=== PATIENT | female | born 1955 | race Caucasian/White ===

== ENCOUNTER 2021-03-06 13:16 | Inpatient (IN) | payer OTHER, SELFPAY ==
[~2021-03-06] VITALS: Ht 165.1 cm; Wt 34.5 kg
[2021-03-06 13:29] VITALS: BP_SYST 131; BP_SYST 137; BP_DIAS 72
--- NOTE | 2021-03-06 13:33 | NUR ---
TENT 2
--- NOTE | 2021-03-06 14:01 | NUR ---
PT AMBULATED TO BED 10
--- NOTE | 2021-03-06 14:03 | NUR ---
65 Y/O FEMALE C/O FEVER AND CHILLS X3 DAYS. PT REPORTS FEVER OF 100-101 BUT DENIES TAKING ANYTHING FOR PAIN. PT DENIES SOB/COUGH AND ANY OTHER SYMPTOMS. DENIES EXPOSURE TO ANYONE WITH COVID. PT IS NOT VACCINATED. PT DENIES PAIN AT THIS TIME. PT A/O X4 WITH EVEN AND UNLABORED RESPIRATIONS. PT IN GOWN ON TUNNELLER PM:MARKIE NKDA Addendum: 03/06/21 at 1841 by [email or web address] ON FIRST ASSESSMENT, PT A/O X4/ GCS 15. PT HAS HAD INCREASED CONFUSION WHILE IN THE ER. ERMD HAS BEEN NOTIFIED. PT HAS PERIODS OF CONFUSION, GCS NOW 14. A/O X1/2
--- NOTE | 2021-03-06 14:06 | NUR ---
COVID NOAM SWAB DONE.
--- NOTE | 2021-03-06 14:10 | NUR ---
DR VALERIO AT BEDSIDE EVALUATING PT
[2021-03-06] MEDS ORDERED: NACL 0.9% 1,000 ML IV ONE (14:15)
--- NOTE | 2021-03-06 14:17 | NUR ---
RAD AT BEDSIDE
--- NOTE | 2021-03-06 14:21 | NUR ---
PT AMBULATED TO RESTROOM FOR URINE SAMPLE
--- NOTE | 2021-03-06 14:54 | NUR ---
URINE SAMPLE, COVID NOVEL SAMPLE, AND BLOOD SAMPLES COLLECTED AND WALKED TO LAB
[2021-03-06 14:58] LABS: HEMATOCRIT 36.8 % (36-48); HEMOGLOBIN 12.4 g/dL (12.0-16.0); MEAN CORPUSCULAR HEMOGLOBIN 28 pg (27-31); MEAN CORPUSCULAR HGB CONC 34 g/dL (33-37); MEAN CORPUSCULAR VOLUME 84.2 fL (80-94); PLATELET COUNT (AUTO) 267 K/uL (140-450); RED BLOOD CELL COUNT(AUTO) 4.37 MIL/uL (4.20-5.40); RED CELL DISTRIBUTION WIDTH 15.7 % (11.6-13.7)
[2021-03-06 15:00] LABS: WHITE BLOOD COUNT (AUTO) 25.3 K/uL (4.8-10.8)
[2021-03-06] MEDS ORDERED: cefTRIAXone 1,000 MG in DEXT 5% MINI-BAG PLUS 50 ML IV ONE (15:05)
--- NOTE | 2021-03-06 15:08 | NUR ---
Note guillaume in EDM - 03/06/21 at 1551 by [email or web address] PT PULLED OUT IV, TOOK OFF BEADWORKER, AND TRIED WALKING OUT OF ROOM. PT CONFUSED AND STATING SHE DOESNT KNOW WHY SHE GOT OUT OF BED. PT A/O X2, UNAWARE OF TIME OR SITUATION. DR VALERIO MADE AWARE
--- NOTE | 2021-03-06 15:08 | NUR ---
PT PULLED OUT IV, TOOK OFF BAND ATTACHER, AND TRIED WALKING OUT OF ROOM. PT CONFUSED AND STATING SHE DOESNT KNOW WHY SHE GOT OUT OF BED. PT A/O X2, UNAWARE OF TIME OR SITUATION. PT ASSISTED BACK TO BED, RECONNECTED TO MONITOR AND REORIENTED. BED IN LOWEST POSITION, BRAKES LOCKED, X2 SIDERAILS UP FOR SAFETY. MD VALERIO MADE AWARE
[2021-03-06 15:12] LABS: APPEARANCE,URINE CLOUDY (CLEAR); BILIRUBIN,URINE 1+ (NEGATIVE); BLOOD, URINE 3+ (NEGATIVE); COLOR,URINE YELLOW (YELLOW); LEUKOCYTE ESTERASE ,URINE 3+ (NEGATIVE); NITRITE, URINE POSITIVE (NEGATIVE); UGLUCOSE NEGATIVE (NEGATIVE)
[2021-03-06 15:14] LABS: ALBUMIN 3.2 g/dL (3.4-5.0); ANION GAP 18.8 (8-16); CARBON DIOXIDE 20.9 mmol/L (21-32); CREATININE 1.7 mg/dL (0.6-1.3); POTASSIUM 3.7 mmol/L (3.5-5.1); TOTAL BILIRUBIN 0.7 mg/dL (0.0-1.0)
[2021-03-06 15:20] LABS: LYMPHOCYTES % (MANUAL) 3 % (20-46); MONOCYTES % (MANUAL) 2 % (5-12)
--- NOTE | 2021-03-06 15:25 | NUR ---
PATIENT TAKEN TO CT VIA MIKE
--- NOTE | 2021-03-06 15:45 | NUR ---
PT BACK FROM CT AND CONNECTED TO MONITOR
[2021-03-06] MEDS ORDERED: cefTRIAXone 1,000 MG VIAL ONE (16:04)
[2021-03-06 16:43] LABS: RBC,URINE >100 /HPF (0-5); WBC,URINE 60-80 /HPF (0-5)
--- NOTE | 2021-03-06 17:21 | NUR ---
PT SLEEPING IN BED WITH EVEN AND UNLABORED RESPIRATIONS. BED IN LOWEST POSITION, BRAKES LOCKED, X2 SIDERAILS UP FOR SAFETY. WILL CONTINUE TO MONITOR
--- NOTE | 2021-03-06 18:10 | NUR ---
PT TOOK OFF LEADS AND TRYING TO GET OUT OF BED. PT REORIENTED AND HELPED BACK IN BED AND ATTACHED TO MONITOR. DR VALERIO MADE AWARE.
[2021-03-06] MEDS ORDERED: LORazepam 2 MG/ML VIAL IVP ONE (18:15)
[2021-03-06] MEDS ORDERED: ACETAMINOPHEN EXTRA STRENGTH 500 MG TAB PO ONE (18:15)
[2021-03-06] MEDS ORDERED: ZOLPIDEM 5 MG TAB PO PRN (18:25)
[2021-03-06] MEDS ORDERED: MAGNESIUM OXIDE 400 MG TAB PO PRN (18:25)
[2021-03-06] MEDS ORDERED: ONDANSETRON 4 MG/2 ML VIAL IVP PRN (18:25)
[2021-03-06] MEDS ORDERED: MAG SULF 2000 MG/WATER PREMIX 50 ML IV PRN (18:25)
[2021-03-06] MEDS ORDERED: KCL 20 MEQ/WATER INJ PREMIX 200 ML IV PRN (18:25)
[2021-03-06] MEDS ORDERED: HYDROcodone/APAP 5/325 MG 1 TAB TAB PO PRN (18:25)
[2021-03-06] MEDS ORDERED: MORPHINE SULFATE 4 MG/ML SYR IVP PRN (18:25)
[2021-03-06] MEDS ORDERED: ACETAMINOPHEN 325 MG TAB PO PRN (18:25)
[2021-03-06] MEDS ORDERED: POTASSIUM CHLORIDE 10 MEQ TABER PO PRN (18:25)
[2021-03-06] MEDS: NACL 0.9% 1,000 ML IV SCH (18:56)
--- NOTE | 2021-03-06 19:23 | NUR ---
REPORT GIVEN TO KENNETH RN, TRANSFER OF CARE AT THIS TIME
--- NOTE | 2021-03-06 19:26 | NUR ---
Patient appears to be restless- low fowlers with eyes open. patient denies pain. patient AAOx2 currently. Patient RR increased to 40s and HR in 110s. Safety measures in place, attached to fluids, placed on the awake overnight monitor, and will continue to monitor patient.
[2021-03-06] MEDS ORDERED: LANTUS SUBQ (19:39)
--- NOTE | 2021-03-06 20:04 | NUR ---
Patient will be admitted to care of Zeke Amanda MD and Kel Tay MD. Admited to Telemetry. Will go to room 118a. Belongings list completed. Report to Анна BLACK.
--- NOTE | 2021-03-06 20:30 | NUR ---
PATIENT TRANSFERRED TO FLOOR. PATIENT IS AAOX4 AT THIS TIME. PER TRAUMA DIRECTOR PT HAS MOMENTS OF CONFUSION, RESPIRATIONS ARE EQUAL AND UNLABORED ON ROOM AIR SAT WELL 95%. DENIES COUGH OR SOB. C/C FEVER X3 DAYS DX SEPSIS,UTI,IMAN. COVID RAPID NEG, PCR PENDING ISOLATION SIGN AT DOOR. ORIENTED PATIENT TO ROOM, STAFF, CALL LIGHT, VISITING HOURS. MRSA SWAB OBTAINED AND SENT TO LAB. SKIN IS INTACT. PT FROM HOME ABLE TO AMBULATE WITH ASSIST. POC REVIEWED WITH PATIENT. PT VERBALIZED UNDERSTANDING.
--- NOTE | 2021-03-06 20:44 | NUR ---
VITAL SIGNS ARE WITHIN NORMAL LIMITS. SHC HEPARIN GIVEN PER ORDERS. ALL SAFETY MEASURES ARE IN PLACE. WILL CONTINUE TO MONITOR.
[2021-03-06 20:46] VITALS: BP 100/48
--- NOTE | 2021-03-06 21:56 | NUR ---
ROUNDS MADE. PT APPEARS TO BE SLEEPING COMFORTABLY IN BED. NO S/SX OF DISTRESS. CALL LIGHT IS WITHIN REACH
[2021-03-07] VITALS: BP 110/54
--- NOTE | 2021-03-07 00:20 | NUR ---
VITAL SIGNS ARE WITHIN NORMAL LIMITS. ASSISTED PATIENT TO BATHROOM TOLERATED WELL. PT RESTING IN BED. NO S/SX OF DISTRESS. WILL CONTINUE TO MONITOR.
--- NOTE | 2021-03-07 02:02 | NUR ---
ASSISTED PATIENT TO THE RESTROOM. PT TOLERATED WELL. ALL NEEDS MET. CALL LIGHT IS WITHIN REACH.
[2021-03-07 04:00] VITALS: BP 97/61
--- NOTE | 2021-03-07 04:42 | NUR ---
NOTIFIED BY QUALITY CONTROL TECH HEART RATE 141 ASSESSED PATIENT. PT OBSERVED WALKING BACK FROM BATHROOM. PATIENT NOW RESTING IN BED HEART RATE IN 120S PT DENIES S/SX OF DISTRESS. VITAL SIGNS ARE STABLE. WILL CONTINUE TO MONITOR.
--- NOTE | 2021-03-07 05:55 | NUR ---
ADMIN PRN TYLENOL FOR TEMP 100.[address] FAN TURN ON. WILL CONTINUE TO MONITOR
[2021-03-07] MEDS: NACL 0.9% 1,000 ML IV SCH ×2 (06:56→10:00)
[2021-03-07 06:59] LABS: ALBUMIN 2.7 g/dL (3.4-5.0); ANION GAP 26.2 (8-16); CARBON DIOXIDE 18.6 mmol/L (21-32); CREATININE 1.5 mg/dL (0.6-1.3); POTASSIUM 3.8 mmol/L (3.5-5.1); TOTAL BILIRUBIN 0.7 mg/dL (0.0-1.0)
[2021-03-07 07:10] LABS: BASOPHILS % (AUTO) 0.1 % (0.0-2.0); EOSINOPHILS % (AUTO) 0.1 % (0.0-4.0); HEMATOCRIT 36.9 % (36-48); HEMOGLOBIN 12.2 g/dL (12.0-16.0); LYMPHOCYTES # (AUTO) 0.9 K/uL (2.5-16.5); LYMPHOCYTES % (AUTO) 3.8 % (20.5-51.1); MEAN CORPUSCULAR HEMOGLOBIN 28 pg (27-31); MEAN CORPUSCULAR HGB CONC 33 g/dL (33-37); MEAN CORPUSCULAR VOLUME 85.5 fL (80-94); MONOCYTES # (AUTO) 4.7 K/uL (0.8-1.0); MONOCYTES % (AUTO) 18.9 % (1.7-9.3); NEUTROPHILS % (AUTO) 77.1 % (42.2-75.2); PLATELET COUNT (AUTO) 218 K/uL (140-450); RED BLOOD CELL COUNT(AUTO) 4.31 MIL/uL (4.20-5.40); RED CELL DISTRIBUTION WIDTH 15.9 % (11.6-13.7); WHITE BLOOD COUNT (AUTO) 24.6 K/uL (4.8-10.8)
--- NOTE | 2021-03-07 07:15 | NUR ---
GAVE BEDSIDE REPORT TO DAY RN. PT ENDORSED IN STABLE CONDITION.
--- NOTE | 2021-03-07 07:16 | NUR ---
RECEIVED PATIENT FROM ROAD FREIGHT CONDUCTOR NURSE FOR CONTINUITY OF CARE. PATIENT IS A/A/O X4 WITH EPISODE OF FORGETFUL. RESPIRATORY EVEN AND UNLABORED, ON ROOM AIR, NO SIGN OF DISTRESS NOTED. SKIN WARM, DRY, NON DIAPHORETIC. IV ON LEFT AC 20G, INTACT AND PATENT. PATIENT DENIES ANY PAIN OR DISCOMFORT. REPORTS BURNING WHEN URINATE. ABLE TO MAKE NEED KNOWN. PLAN OF CARE DISCUSSED, PATIENT VERBALIZED UNDERSTANDING. PRECAUTION IN PLACE. CALL LIGHT WITHIN REACH. WILL CONTINUE TO MONITOR.
[2021-03-07 08:00] VITALS: BP 120/64
--- NOTE | 2021-03-07 08:57 | NUR ---
RECEIVED CALL FROM RADIOLOGY REGARDING THE ORDER FOR LEFT NEPHROSTOMY TUBE PLACEMENT, WILL CALL DR ZAIDI TO VERIFY.
[2021-03-07 08:58] LABS: PROTHROMBIN TIME 12.2 secs (10.8-13.4)
--- NOTE | 2021-03-07 09:30 | NUR ---
PAGED DR ZAIDI REGARDING THE ORDER FOR LEFT NEPHROSTOMY TUBE PLACE. WAITING FOR CALL BACK.
--- NOTE | 2021-03-07 09:34 | NUR ---
RECEIVED CALL BACK FROM DR ZAIDI OFFICE. TORB ORDER FOR LEFT NEPHROSTOMY TUBE PLACE AND HOLD HEPARIN FOR UP COMING PROCEDURE. WILL FOLLOW ORDER.
[2021-03-07] MEDS ORDERED: DEXTROSE 50% 50 ML SYR IVP PRN (09:35)
--- NOTE | 2021-03-07 11:00 | NUR ---
ROUND CHECK. PATIENT IS RESTING IN BED, NO SIGN OF DISTRESS NOTED. PRECAUTION IN PLACE. CALL LIGHT WITHIN REACH. WILL CONTINUE TO MONITOR.
--- NOTE | 2021-03-07 11:03 | NUR ---
PATIENT HAS BEEN SCREENED AND CATEGORIZED HIGH NUTRITION RISK. PATIENT WILL BE SEEN WITHIN 1-2 DAYS OF ADMISSION. 03/08/21 REVIEWED BY LAKHWINDER FULLER RD
[2021-03-07] MEDS: BLOOD GLUCOSE MONITORING 1 DEV DEV FS SCH ×3 (11:42→21:00)
[2021-03-07] MEDS: INSULIN LISPRO SLIDING SCALE 100 UNITS/ML VIAL SUBQ PRN ×2 (11:42→22:29)
[2021-03-07 12:00] VITALS: BP 109/74
--- NOTE | 2021-03-07 12:27 | NUR ---
DC PLANNIN YRS OLD FEMALE PATIENT WAS ADMITTED FROM HOME WITH A DX OF SEPSIS, UTI AND IMAN. PATIENT HAS A HX OF DIABETES CXR SHOWED CHRONIC CHANGES CT ABD SHOWED OBSTRUCTING CALCULUS IN THE LEFT KIDNEY HYDRONEPHROSIS. RAPID COVID TEST NEGATIVE . ADMINISTERED IVF, IV ABX ROCEPHIN. CONSULTED WITH UROLOGISTS AND ENROLLMENT MANAGEMENT MANAGER. DC PLAN TO GO HOME WHEN [place]. CM TO FOLLOW [facility] BEL[facility]ÁN UPDATED PATIENT'S CLINICAL AND POSSIBLE NEPHROSTOMY TUBE PLACEMENT, HE PROVIDED THE AUTH NUMBER FOR HOSPITAL STAY. AUTH# [id number]
--- NOTE | 2021-03-07 13:55 | NUR ---
DR PALMA AT BEDSIDE TO EXPLAIN THE PROCEDURE. PATIENT VERBALIZED UNDERSTANDING. PATIENT SIGNED, WITNESS BY RN.
[2021-03-07] MEDS ORDERED: LIDOCAINE 1% 500 MG/50 ML VIAL ONE (14:04)
[2021-03-07] MEDS ORDERED: fentaNYL citrate 0.05 MG/ML VIAL ONE (14:27)
[2021-03-07] MEDS ORDERED: MIDAZOLAM 5 MG/5 ML VIAL ONE (14:27)
--- NOTE | 2021-03-07 14:35 | NUR ---
PATIENT TRANSFER TO OR FOR NEPHROSTOMY TUBE PLACEMENT VIA GURNEY. PATIENT IS STABLE.
--- NOTE | 2021-03-07 15:36 | NUR ---
PATIENT WAS RE-SCREENED LOW NUTRITION RISK DUE TO BMI OF 12.6 KG/M2 INACCURATE PER RN. LAKHWINDER FULLER RD
--- NOTE | 2021-03-07 15:41 | NUR ---
PATIENT'S , CATHERINE, CALLED TO UPDATE PATIENT'S CONDITION. ALL QUESTIONS ANSWERED, WILL CONTINUE TO UPDATE.
--- NOTE | 2021-03-07 15:51 | NUR ---
HOLD SCHEDULE ROCEPHIN DUE TO PATIENT RECEIVED ONCE TIME DOSE BEFORE PROCEDURE.
--- NOTE | 2021-03-07 16:18 | NUR ---
PATIENT CAME BACK FROM OR, PATIENT IS A/A/O X4. DENIES ANY PAIN OR DISCOMFORT AT THIS TIME. NEPHROSTOMY BAG NOTED ON LEFT FLANK, RED DRAINAGE. VITAL SIGNS WNL, BP 104/63, HR 114, O2 SAT 96%, TEMP 99.0, RR 18. PRECAUTION IN PLACE. CALL LIGHT WITHIN REACH. WILL CONTINUE TO MONITOR.
[2021-03-07 16:20] VITALS: BP 104/63
--- NOTE | 2021-03-07 17:07 | NUR ---
BLOOD SUGAR CHECK 139, NO INSULIN NEED TO COVER. PATIENT IS RESTING IN BED, NO SIGN OF DISTRESS NOTED. PRECAUTION IN PLACE. CALL LIGHT WITHIN REACH. WILL CONTINUE TO MONITOR.
--- NOTE | 2021-03-07 18:45 | NUR ---
PATIENT IS EATING HER DINNER, NO SIGN OF DISTRESS NOTED. PATIENT ACCIDENTLY TAKES OFF HER IV, NO SIGN OF ACTIVE BLEEDING NOTED. WILL ENDORSED TO SENIOR INFORMATION SYSTEMS ARCHITECT NURSE. PRECAUTION IN PLACE. CALL LIGHT WITHIN REACH. WILL CONTINUE TO MONITOR.
--- NOTE | 2021-03-07 19:36 | NUR ---
ENDORSED PATIENT TO JEWELRY MODEL MAKER NURSE FOR CONTINUITY OF CARE. PATIENT IS STABLE.
[2021-03-07 20:00] VITALS: BP 111/61
--- NOTE | 2021-03-07 23:39 | NUR ---
PATIENT AWAKE ALERT PATIENT HAS NO IV SITE PUT 22 GA IN AT RIGHT WRIST SITE WRAPPED WITH GLAUZE DRRESSING. PATIENT C/O OF SOME DISCOMFORT AT RIGHT SIDE WHERE NEPHROSTOMY IS GIVEN MORPHINE 4 MG IVP. THE DRAINAGE IN BAG IS ORANGE RED DRAINAGE NO OTHER C/O. LUNGS DIMINISH ON ROOM AIR. BLOOD SUGAR 2100 287 GIVEN 6 UNITS OF HUMALOG S.S RIGHT UPPER ARM. IV RESTARTED NS AT 80 HOUR. PATIENT SINUS TACH ON MONITOR 106 HEART RATE. TEMP 98.3.2000.
[2021-03-08] VITALS: BP 110/60
[2021-03-08 04:00] VITALS: BP 103/60
--- NOTE | 2021-03-08 05:42 | NUR ---
patients blood sugar this a.m 212 to be covered on day.
[2021-03-08 07:18] LABS: BASOPHILS # (AUTO) 0.1 K/uL (0.00-0.22); BASOPHILS % (AUTO) 0.4 % (0.0-2.0); EOSINOPHILS # (AUTO) 0.1 K/uL (0-0.4); EOSINOPHILS % (AUTO) 0.5 % (0.0-4.0); HEMOGLOBIN 10.9 g/dL (12.0-16.0); LYMPHOCYTES # (AUTO) 1.4 K/uL (2.5-16.5); LYMPHOCYTES % (AUTO) 7.2 % (20.5-51.1); MEAN CORPUSCULAR HEMOGLOBIN 28 pg (27-31); MEAN CORPUSCULAR HGB CONC 34 g/dL (33-37); MEAN CORPUSCULAR VOLUME 83.6 fL (80-94); MONOCYTES # (AUTO) 2.3 K/uL (0.8-1.0); MONOCYTES % (AUTO) 12.5 % (1.7-9.3); NEUTROPHILS # (AUTO) 14.8 K/uL (1.8-7.7); NEUTROPHILS % (AUTO) 79.4 % (42.2-75.2); PLATELET COUNT (AUTO) 280 K/uL (140-450); RED BLOOD CELL COUNT(AUTO) 3.83 MIL/uL (4.20-5.40); RED CELL DISTRIBUTION WIDTH 15.9 % (11.6-13.7); WHITE BLOOD COUNT (AUTO) 18.7 K/uL (4.8-10.8)
[2021-03-08 07:21] LABS: ALBUMIN 2.4 g/dL (3.4-5.0); ANION GAP 16.8 (8-16); CARBON DIOXIDE 18.9 mmol/L (21-32); CREATININE 1.3 mg/dL (0.6-1.3); POTASSIUM 3.7 mmol/L (3.5-5.1); TOTAL BILIRUBIN 0.2 mg/dL (0.0-1.0)
[2021-03-08] MEDS: NACL 0.9% 1,000 ML IV SCH ×2 (07:55→20:00)
[2021-03-08 08:00] VITALS: BP 125/77
--- NOTE | 2021-03-08 08:12 | NUR ---
RECEIVED REPORT FROM NIGHT NURSE, PT IS ALERT ORIENTED X 4 VERBALLY RESPONSIVE, DENIES PAIN AND DISCOMFORT. HAS IV ACCESS ON RIGHT WRIST 22 GAUGE. NEPHROSTOMY TUBE ON THE LEFT SIDE. PT NORMAL SALINE 80 ML/HR, SINUS TACHY. POC DISCUSSED WILL CONTINUE TO FOLLOW.
[2021-03-08] MEDS: INSULIN LANTUS 100 UNITS/ML 10 ML VIAL SUBQ SCH (08:46)
[2021-03-08] MEDS: BLOOD GLUCOSE MONITORING 1 DEV DEV FS SCH ×3 (11:53→21:00)
[2021-03-08] MEDS: INSULIN LISPRO SLIDING SCALE 100 UNITS/ML VIAL SUBQ PRN ×3 (11:59→22:26)
[2021-03-08 12:00] VITALS: BP 130/92
[2021-03-08 16:15] VITALS: BP 121/85
--- NOTE | 2021-03-08 16:15 | NUR ---
BLOOD GLUCOSE 179 2 UNITS OF INSULIN GIVEN.
--- NOTE | 2021-03-08 19:29 | NUR ---
ENDORSED NIGHT NURSE FOR CONTINUITY OF CARE PT IS STABLE.
[2021-03-08 20:00] VITALS: BP 117/51
[2021-03-09] VITALS: BP 158/78
--- NOTE | 2021-03-09 01:22 | NUR ---
PATIENT AWAKE ALERT NO C/O IV SITE OK 22 GA RIGHT WRIST. ON ROOM AIR SAT 96%. NEPHROSTOMY BAG DRAINING GILMA COLOR DRAIN 350 OUR 2300 PATIENT ALSO VOIDING. PATIENT ON MONITOR SINUS CHEST CLEAR. BLOOD SUGAR 228 COVERED WITH 4 UNITS OF HUMALOG S.Q. THE SITE OF NEPHROSTOMY DRY INTACT. PATIENT HAS NS INFUSING AT 80 HOUR.
[2021-03-09 04:00] VITALS: BP 152/76
[2021-03-09 07:33] LABS: BASOPHILS % (AUTO) 0.4 % (0.0-2.0); EOSINOPHILS # (AUTO) 0.3 K/uL (0-0.4); EOSINOPHILS % (AUTO) 2.1 % (0.0-4.0); HEMATOCRIT 30.5 % (36-48); HEMOGLOBIN 10.1 g/dL (12.0-16.0); LYMPHOCYTES # (AUTO) 1.6 K/uL (2.5-16.5); LYMPHOCYTES % (AUTO) 13.5 % (20.5-51.1); MEAN CORPUSCULAR HEMOGLOBIN 28 pg (27-31); MEAN CORPUSCULAR HGB CONC 33 g/dL (33-37); MONOCYTES # (AUTO) 1.8 K/uL (0.8-1.0); MONOCYTES % (AUTO) 14.9 % (1.7-9.3); NEUTROPHILS # (AUTO) 8.4 K/uL (1.8-7.7); NEUTROPHILS % (AUTO) 69.1 % (42.2-75.2); PLATELET COUNT (AUTO) 293 K/uL (140-450); RED BLOOD CELL COUNT(AUTO) 3.59 MIL/uL (4.20-5.40); RED CELL DISTRIBUTION WIDTH 16.1 % (11.6-13.7); WHITE BLOOD COUNT (AUTO) 12.1 K/uL (4.8-10.8)
--- NOTE | 2021-03-09 07:33 | NUR ---
RECEIVED REPORT FROM NIGHT NURSE PT IS ALERT ORIENTED X 4 VERBALLY RESPONSIVE. HAS NEPHROSTOMY TUBE ON LEFT SIDE, PT IS AMBULATORY. DIABETIC PT LAST BLOOD GLUCOSE WAS 147 NO INSULIN COVERAGE NEEDED. IV ACCESS ON RIGHT WRIST 22 GAUGE, NS 80 ML/HR. SKIN IS INTACT. POC DISCUSSED WILL CONTINUE TO FOLLOW.
[2021-03-09 07:58] LABS: ALBUMIN 2.1 g/dL (3.4-5.0); ANION GAP 14.6 (8-16); CARBON DIOXIDE 19.6 mmol/L (21-32); CREATININE 1.2 mg/dL (0.6-1.3); POTASSIUM 3.2 mmol/L (3.5-5.1); TOTAL BILIRUBIN 0.2 mg/dL (0.0-1.0)
[2021-03-09 08:00] VITALS: BP 115/73
[2021-03-09] MEDS: INSULIN LANTUS 100 UNITS/ML 10 ML VIAL SUBQ SCH (08:24)
[2021-03-09] MEDS: BLOOD GLUCOSE MONITORING 1 DEV DEV FS SCH ×2 (08:25→12:30)
[2021-03-09] MEDS: NACL 0.9% 1,000 ML IV SCH (08:55)
[2021-03-09] MEDS ORDERED: CEPH-588 PO (09:15)
[2021-03-09] MEDS: INSULIN LISPRO SLIDING SCALE 100 UNITS/ML VIAL SUBQ PRN ×2 (09:50→12:33)
[2021-03-09 12:00] VITALS: BP 121/86
--- NOTE | 2021-03-09 12:17 | NUR ---
Faxed order and MD clinical notes. face sheet to Nuclear Reactor Technician at [facility] to arrange HH and nephrostomy care to [phone]. Ref # [id number]. Addendum: 03/10/21 at 0939 by Idania Cervantes RN DC PLANNING: [facility]N NOTIFIED HIM THAT PATIENT WAS DISCHARGED 03/09 AND NEEDS HOME HEALTH FOR NEPHROSTOMY TUBE CARE. FAXED ALL THE ORDER, PER ROBBIE WILL ASSIGN HOME HEALTH AND CONTACT PATIENT. JEREL TO FOLLOW
[2021-03-09 15:08] VITALS: BP_SYST 121
--- NOTE | 2021-03-09 16:30 | NUR ---
DISCHARGED PT HOME WITH HER IN STABLE CONDITION. VITALS WERE STABLE AT THE TIME OF DISCHARGE. ALL THE DISCHARGE PAPERWORK GIVEN TO THE PT. EMPTY THE NEPHROSTOMY BAG, DC THE IV ACCESS. ALL BELONGING GIVEN TO PT. TOOK PT TO THE PARKING LOT AND ASSIST TO SIT IN CAR. AND PT DO NOT HAVE ANY QUESTION AT THE TIME OF DISCHARGE.
== END 2021-03-09 16:35 | disposition home health service (06) | DRG 871 ==
LOC: MED 13:16 → MTU 18:30
PROVIDERS: ADMIT Internal Medicine; ATTEND Internal Medicine
PROC: 0T9430Z Drainage of Left Kidney Pelvis with Drainage Device, Percutaneous Approach (ICD-10-PCS; principal; 2021-03-08)
DX: A41.9 Sepsis, unspecified organism (principal); N17.0 Acute kidney failure with tubular necrosis; N13.6 Pyonephrosis; E87.1 Hypo-osmolality and hyponatremia; Z20.822 Contact with and (suspected) exposure to COVID-19; B96.20 Unspecified Escherichia coli [E. coli] as the cause of diseases classified elsewhere; E11.9 Type 2 diabetes mellitus without complications; N28.1 Cyst of kidney, acquired; Z79.4 Long term (current) use of insulin
CPT/HCPCS: 36415; 50432; 70450; 71045; 76770; 80053; 81001; 82948; 83605; 83880; 84484; 85025; 85610; 85730; 87040; 87081; 87086; 93005; 96361; 96365; 96375; 99285; C1729; J0696; J1644; J1815; J2001; J2060; J2250; J2270; J3010; J7060; Q0092; U0003

== ENCOUNTER 2021-03-11 16:44 | Emergency (ER) | payer OTHER, SELFPAY ==
[~2021-03-11] VITALS: Ht 162.6 cm; Wt 68.0 kg
[~2021-03-11 16:44] MED LIST: CEPH-588 PO; LANTUS SUBQ
[2021-03-11 16:58] VITALS: BP 141/71
--- NOTE | 2021-03-11 21:25 | NUR ---
PT SEEN AND EVALUATED BY DR. DANIEL. NO NURSING CARE PROVIDED.
--- NOTE | 2021-03-11 21:27 | NUR ---
Patient discharged with v/s stable. Written and verbal after care instructions given and explained. Patient verbalized understanding. Ambulatory with steady gait. All questions addressed prior to discharge. Advised to follow up with PMD.
== END 2021-03-11 21:27 | disposition home or self-care (01) ==
LOC: MED 16:44
DX: T83.032A Leakage of nephrostomy catheter, initial encounter (principal); T83.098A Other mechanical complication of other urinary catheter, initial encounter; E11.9 Type 2 diabetes mellitus without complications; Z79.2 Long term (current) use of antibiotics; Z79.4 Long term (current) use of insulin; Y84.6 Urinary catheterization as the cause of abnormal reaction of the patient, or of later complication, without mention of misadventure at the time of the procedure
CPT/HCPCS: 99281

== ENCOUNTER 2022-08-02 09:46 | Inpatient (IN) | payer OTHER ==
[~2022-08-02] VITALS: Ht 162.6 cm; Wt 76.7 kg
--- NOTE | 2022-08-02 09:50 | NUR ---
KIMBERLY ALS TO ER BED 10
[2022-08-02 10:02] VITALS: BP 93/63
[2022-08-02] MEDS ORDERED: cefTRIAXone 1,000 MG in DEXT 5% MINI-BAG PLUS 50 ML IV ONE (10:10)
[2022-08-02] MEDS ORDERED: NACL 0.9% 2,000 ML IV SCH (10:10)
--- NOTE | 2022-08-02 10:10 | NUR ---
UPON ARRIVAL PATIENT HAD TWO LARGE BOWEL MOVEMENTS, PATIENT CLEANED UP, PLACED IN CLEAN GOWN, DIAPER AND CLEAN UNDER PADS PLACED, PATIENT ON BEDSIDE FURNITURE FABRICATOR.
[2022-08-02] MEDS ORDERED: cefTRIAXone 1,000 MG VIAL ONE (10:22)
[2022-08-02] MEDS ORDERED: ACETAMINOPHEN EXTRA STRENGTH 500 MG TAB PO ONE (10:25)
--- NOTE | 2022-08-02 10:32 | NUR ---
NOAM AND FLU SWABS COLLECTED, STOOL SAMPLE COLLECTED AND WALKED TO LAB
--- NOTE | 2022-08-02 10:41 | NUR ---
SWABS, URINE, STOOL AND BLOOD HANDED TO LAB
--- NOTE | 2022-08-02 10:44 | NUR ---
FURNITURE RENTAL CONSULTANT AT BEDSIDE
[2022-08-02 10:57] LABS: APPEARANCE,URINE CLEAR (CLEAR); BILIRUBIN,URINE NEGATIVE (NEGATIVE); BLOOD, URINE 3+ (NEGATIVE); COLOR,URINE YELLOW (YELLOW); LEUKOCYTE ESTERASE ,URINE TRACE (NEGATIVE); NITRITE, URINE NEGATIVE (NEGATIVE); UGLUCOSE NEGATIVE (NEGATIVE)
--- NOTE | 2022-08-02 11:00 | NUR ---
66/F BIBA FROM HOME. PER EMS PATIENTS CALLED 911 STATING PATIENT WAS ALTERED AND NOT RESPONSIVE TO QUESTIONS. STATED TO EMS PATIENTS TEMP WAS 105, EMS STATING THEY RETOOK TEMP AND GOT 101, TEMP ON ARRIVAL 102 AXILLARY. PATIENT DENIES MEDICAL COMPLAINTS OR PAIN ON ARRIVAL, STATES "I FEEL FINE" BEGAN ASKING "DID I PASS OUT", PATIENT AOX3, APPEARS DIAPHORETIC, HR IN THE 130'S ON ARRIVAL. PATIENT PLACED IN GOWN AND ON BEDSIDE CAM SPECIALIST. DENIES SOB, CP OR RECENT SICK CONTACTS. 02 READING IN THE LOW 90S ON ARRIVAL, PLACED ON 2L MN, DR. VALERIO AWARE OF PATIENT STATUS ON ARRIVAL.
[2022-08-02 11:01] LABS: HEMATOCRIT 35.1 % (36-48); HEMOGLOBIN 11.5 g/dL (12.0-16.0); MEAN CORPUSCULAR HEMOGLOBIN 27 pg (27-31); MEAN CORPUSCULAR HGB CONC 33 g/dL (33-37); MEAN CORPUSCULAR VOLUME 82.1 fL (80-94); PLATELET COUNT (AUTO) 272 K/uL (140-450); RED BLOOD CELL COUNT(AUTO) 4.27 MIL/uL (4.20-5.40); WHITE BLOOD COUNT (AUTO) 19.6 K/uL (4.8-10.8)
[2022-08-02 11:11] LABS: RBC,URINE 50-80 /HPF (0-5); WBC,URINE 80-100 /HPF (0-5)
[2022-08-02 11:14] LABS: ALBUMIN 2.9 g/dL (3.4-5.0); ANION GAP 19.1 (8-16); CARBON DIOXIDE 18.4 mmol/L (21-32); CREATININE 1.8 mg/dL (0.6-1.3); POTASSIUM 3.5 mmol/L (3.5-5.1); TOTAL BILIRUBIN 0.8 mg/dL (0.0-1.0)
[2022-08-02 11:29] LABS: BASOPHILS % (MANUAL) 0 % (0-2); EOSINOPHILS % (MANUAL) 3 % (0-4); LYMPHOCYTES % (MANUAL) 7 % (20-46); MONOCYTES % (MANUAL) 7 % (5-12)
--- NOTE | 2022-08-02 12:12 | NUR ---
PATIENT BP 85/55, DR. VALERIO INFORMED, VERBAL ORDER FOR NS BOLUS TO BE GIVEN
[2022-08-02] MEDS ORDERED: NACL 0.9% 1,000 ML IV ONE (12:15)
[2022-08-02] MEDS ORDERED: NACL 0.9% 1,000 ML IV STA (12:44)
[2022-08-02] MEDS ORDERED: HYDROcodone/APAP 5/325 MG 1 TAB TAB PO PRN (12:45)
[2022-08-02] MEDS ORDERED: LORazepam 2 MG/ML VIAL IVP PRN ×2 (12:45→14:35)
[2022-08-02] MEDS ORDERED: NACL 0.9% 1,000 ML IV SCH (12:45)
[2022-08-02] MEDS ORDERED: ONDANSETRON 4 MG/2 ML VIAL IVP PRN ×2 (12:45→21:45)
[2022-08-02] MEDS ORDERED: DEXTROSE 50% 50 ML SYR IVP PRN (12:55)
[2022-08-02] MEDS: ALBUMIN HUMAN 25% 100 ML IV SCH ×2 (13:16→23:06)
--- NOTE | 2022-08-02 13:30 | NUR ---
PATIENT PULLED RIGHT FOREARM IV OUT, CATHETER INTACT, SITE BENIGN. NEW IV ESTABLISHED RIGHT HAND 20G
--- NOTE | 2022-08-02 14:25 | NUR ---
BP 70/51, DR. POPE PAGED AND NOTIFIED
--- NOTE | 2022-08-02 14:30 | NUR ---
PATIENT APPEARS PALE, DIAPHORETIC, AFEBRILE AT THIS TIME. NOTIFIED DR. POPE OF PATIENTS CURRENT STATUS, STATED DR. KEENE WILL BE CONSULTED FOR FURTHER ORDERS.
--- NOTE | 2022-08-02 15:05 | NUR ---
NOTIFIED PATIENTS OF CURRENT PATIENT STATUS. INFORMED OF CENTRAL LINE PLACEMENT, AGREED AND GAVE VERBAL CONSENT, SECOND RN SRINI WITNESSED.
[2022-08-02] MEDS ORDERED: CEFEPIME 2,000 MG in DEXTROSE 5% 100 ML IV STA (15:18)
[2022-08-02] MEDS ORDERED: VANCOMYCIN 1,000 MG in DEXTROSE 5% 250 ML IV ONE (15:20)
[2022-08-02] MEDS ORDERED: LORazepam 2 MG/ML VIAL IVP STA (15:53)
[2022-08-02] MEDS ORDERED: NOREPINEPHRINE 4 MG/4 ML VIAL IV ONE (16:07)
[2022-08-02] MEDS: NOREPINEPHRINE 4 MG in DEXTROSE 5% 250 ML IV PRN (16:20)
--- NOTE | 2022-08-02 16:21 | NUR ---
DR. MOREJON BEDSIDE FOR CENTRAL LINE PLACEMENT
[2022-08-02] MEDS ORDERED: CEFEPIME 2,000 MG VIAL IV ONE (17:30)
--- NOTE | 2022-08-02 17:30 | NUR ---
CENTRAL LINE PLACED BY ERMD DR. MOREJON IN RIGHT IJ. X RAY TAKEN S/P PROCEDURE AND PLACEMENT CONFIRMED BY DR. MOREJON, PER DR. MOREJON CENTRAL LINE NOW OKAY TO BE USED.
[2022-08-02] MEDS: BLOOD GLUCOSE MONITORING 1 DEV DEV FS SCH ×2 (17:48→21:00)
--- NOTE | 2022-08-02 17:50 | NUR ---
PATIENT WITH 100 CC OF YELLOW CLOUDY URINE SINCE ARRIVAL VIA PUREWICK IN PLACE. DR. MOREJON MADE AWARE OF LOW URINE OUTPUT AND WAS GIVEN VERBAL ORDER FOR SOTO INSERTION.
[2022-08-02] MEDS: INSULIN LISPRO SLIDING SCALE 100 UNITS/ML VIAL SUBQ PRN ×2 (17:53→23:01)
--- NOTE | 2022-08-02 18:00 | NUR ---
# 16 FR Guzman catheter INSERTED utilizing sterile technique. Immediate return of 250 ml CLOUDY YELLOW urine noted. Bedside drainage bag placed below level of bladder. Pt tolerated procedure WELL .
--- NOTE | 2022-08-02 18:10 | NUR ---
ACCOMPANIED RELOCATION SERVICES SPECIALIST TAISHA TO CT SCAN
[2022-08-02] MEDS ORDERED: VANCOMYCIN 1,000 MG VIAL ONE (18:31)
--- NOTE | 2022-08-02 19:10 | NUR ---
PATIENTS BP 122/76, LEVO DRIP TITRATED DOWN TO 2 MCG/MIN
--- NOTE | 2022-08-02 19:20 | NUR ---
Pt report given to JULIO CÉSAR BLACK. Transfer of care at this time.
--- NOTE | 2022-08-02 19:45 | NUR ---
DR JONES ANESTHESIOLOGY SPEAKING TO DR FRANCE CARDIO
--- NOTE | 2022-08-02 19:50 | NUR ---
Dr. Watson, on phone with Dr. Santamaria to discuss patient surgery. Per Dr. Santamaria, if Dr. Watson and Dr. Velasco find emergency surgery is needed for that patient then he would be agreeable to surgery.
--- NOTE | 2022-08-02 19:59 | NUR ---
Pt to surgery, report given to Heidy BLACK
[2022-08-02] MEDS ORDERED: PROPOFOL 200 MG/20 ML VIAL IV ONE ×3 (21:24)
--- NOTE | 2022-08-02 21:40 | NUR ---
RECEIVED THIS PT FROM SURGERY S/P A CYSTOSCOPY WITH RIGHT URETERAL STENT REPLACEMENT. PT IS RECEIVED ON A RKIMBOLTON ACCOMPANIED BY A RN, MODEL MAKER APPRENTICE AND AN ANESTHESIOLOGIST. PT IS AWAKE AND MOVES HERSELF FREELY FROM GURNEY TO THE BED. SHE DENIES PAIN ,BUT C/O OF BEING COLD. THE SURGERY NURSE OBTAINED 2 WARM BLANKETS FOR THE PATIENT. THE PT HAS A RIGHT INTERNAL JUGULAR CENTRAL LINE IN PLACE INFUSING LEVOPHED 2MCG. AND NS AT 100CC/HOURS. THE CENTRAL LINE DRSG IS REINFORCED. THE PT HAS A HX OF A PRIOR STENT REPLACEMENT FOR KIDNEY STONES. HER ADMITTING VS WERE 96.4, ,P94, BP 103/60 , RESP 21 AND 02 SAT WAS INITIALLY 94, BUT DROPPED RO 84 WHEN SHE OFF HER OXYGEN. SHE WAS Initially on A NON REBREATHING MASK AND LATER CHANGED TO A NASAL CANULA WITH 3 LITERS OF O2. SHE HAS A SOTO CATH IN PLACE DRAINING BRIGHT RED BLOOD. THE SURGEON SAID IT WOULD CLEAR SOON. HER WEIGHT WAS 65.6 KG. SHE CONTINUES RO DENY PAIN.
[2022-08-02] MEDS ORDERED: LABETALOL 20 MG/4 ML VIAL IVP PRN (21:45)
[2022-08-02] MEDS: NACL 0.9% 1,000 ML IV SCH (21:45)
[2022-08-02] MEDS ORDERED: hydrALAZINE 20 MG/ML VIAL IVP PRN (21:45)
[2022-08-02] MEDS ORDERED: HYDROmorphone 1 MG/ML AMP IVP PRN (21:45)
[2022-08-02] MEDS ORDERED: BLOOD GLUCOSE MONITORING 1 DEV DEV FS ONE (21:45)
[2022-08-02 22:00] VITALS: BP 94/63
[2022-08-02 23:00] VITALS: BP_SYST 106; BP_SYST 125; BP_DIAS 68; BP_DIAS 76
[2022-08-03] VITALS (18 sets, daily range): BP systolic 93–121; BP diastolic 61–88
--- NOTE | 2022-08-03 00:30 | NUR ---
PT, RESP MONITOR STARTED TO ALARM WHEN SHE SUDDENLY DROPPED OFF TO SLEEP. SHE WAS BREATHING VERY SHALLOWLY. I MONITORED THE PATIENT FOR 5 MINUTES AND THE MONITOR CONTINUED TO BEEP APNEA. I CALLED THE RESPIRATORY THERAPIST SHE CAME OVER AND ASSESSED THE PT. SHE FELT THE PATIENT WOULD BE OKAY.
--- NOTE | 2022-08-03 03:37 | NUR ---
MONITOR STOPPED BEEPING APNEA.
[2022-08-03] MEDS: ALBUMIN HUMAN 25% 100 ML IV SCH (05:27)
--- NOTE | 2022-08-03 07:44 | NUR ---
got report from the night nurse pt stable no SOB.[id number]
[2022-08-03] MEDS: BLOOD GLUCOSE MONITORING 1 DEV DEV FS SCH ×4 (07:58→20:46)
[2022-08-03] MEDS: NACL 0.9% 1,000 ML IV SCH ×2 (07:58→17:50)
[2022-08-03] MEDS: MORPHINE SULFATE 2 MG/ML SYR IVP PRN ×2 (08:04→20:41)
--- NOTE | 2022-08-03 09:05 | NUR ---
PATIENT HAS BEEN SCREENED AND CATEGORIZED MODERATE NUTRITION RISK. PATIENT WILL BE SEEN WITHIN 3-5 DAYS OF ADMISSION. /08/27 REVIEWED BY RUBIA JON[address] RD
--- NOTE | 2022-08-03 10:10 | NUR ---
PT SLEEPING NO SOB NOW , AN HOUR AGO ATTEMPTED TO CALL HER FOR HER BUT NO ANSWER WILL ATTEMPT LATER.[id number]
[2022-08-03] MEDS ORDERED: RENAL DOSING PER PHARMACY MC PRN (10:40)
[2022-08-03] MEDS: INSULIN LISPRO SLIDING SCALE 100 UNITS/ML VIAL SUBQ PRN ×3 (11:32→20:43)
--- NOTE | 2022-08-03 12:38 | NUR ---
CALLED PATIENT'S DR OFFICE #[phone] AND NOTIFIED THAT PT IS HERE IN ICU, ALSO CALLED PT'S AND LET PT TALK TO HIM. PT STABLE .[id number]
[2022-08-03] MEDS: ACETAMINOPHEN 325 MG TAB PO PRN (15:44)
[2022-08-03] MEDS: CEFEPIME 2,000 MG in DEXTROSE 5% 100 ML IV SCH (17:04)
[2022-08-03] MEDS: NOREPINEPHRINE 4 MG in DEXTROSE 5% 250 ML IV PRN (17:42)
--- NOTE | 2022-08-03 18:10 | NUR ---
PT IS EATING DINNER, THE URINE IS FREE OF BLOOD NOW 024LNC MAINTAINED AND O2 SATURATION MAINTAINED ABOVE 90%.[id number]
--- NOTE | 2022-08-03 19:10 | NUR ---
1910: rec'd pt from AM WAYNE SEAY TO ASSUME PLAN OF CARE. PT'S A/OX3, DENIES PAIN. ON 4 LITERS 02 VIA NC SATS 90-93%, SBP IN THE LOW 100'S, ON LEVOPHED DRIP AT 3MCG AND NS AT 100CC/HR. SELF TURN OBSERVED. REORIENTED TO ROOM, UNIT AND PLAN OF CARE DICUSSED. INSTRUCTED TO CALL IF NEEDS HELP. CALL LIGHT IN REACH. 1999: SHIFT ASSESSMENT DONE. 2099: C/O GEN PAIN AND GIVEN 2MG OF MORHINE IVP ORDERED PRN FOR PAIN. 2199: PAIN RESOLVED. WATCHING TV. 2300: PM CARE RENDERED 0000: PT'S SLEEPING COMFORTABLE. CALL LIGHT IN REACH 0100: CONTINUE MONITOR AND FREQUENT ROUNDS MADE
--- NOTE | 2022-08-03 19:22 | NUR ---
GAVE REPORT TO THE NIGHT NURSE PT RESTING NO SOB.[id number]
[2022-08-04] VITALS (20 sets, daily range): BP systolic 82–142; BP diastolic 48–86
[2022-08-04] MEDS: NACL 0.9% 1,000 ML IV SCH ×3 (02:58→23:44)
--- NOTE | 2022-08-04 05:00 | NUR ---
0500: GIVEN PT PARTIAL BATH, COMPLETE LINEN AD GOWN CHANGED
[2022-08-04] MEDS: ACETAMINOPHEN 325 MG TAB PO PRN ×3 (05:25→19:51)
--- NOTE | 2022-08-04 06:51 | NUR ---
Endorsed pt to WAYNE Lewis to assume plan fo care. Pt's sleeping after given tylenol for headache around 5am. LEvophed off since 399. SBP now in the low 100's sustained since before 399. No resp distress, sats >92% Good urine output yellow clear in color. NO FALLS AND NO INJURY DURING SHIFT.
[2022-08-04] MEDS: BLOOD GLUCOSE MONITORING 1 DEV DEV FS SCH ×4 (07:30→21:32)
[2022-08-04 10:03] LABS: BASOPHILS # (AUTO) 0.1 K/uL (0.00-0.22); BASOPHILS % (AUTO) 0.4 % (0.0-2.0); EOSINOPHILS # (AUTO) 0.1 K/uL (0-0.4); EOSINOPHILS % (AUTO) 0.8 % (0.0-4.0); HEMATOCRIT 30.4 % (36-48); HEMOGLOBIN 10.1 g/dL (12.0-16.0); LYMPHOCYTES % (AUTO) 13.3 % (20.5-51.1); MEAN CORPUSCULAR HEMOGLOBIN 27 pg (27-31); MEAN CORPUSCULAR HGB CONC 33 g/dL (33-37); MEAN CORPUSCULAR VOLUME 82.5 fL (80-94); MONOCYTES # (AUTO) 1.8 K/uL (0.8-1.0); MONOCYTES % (AUTO) 11.9 % (1.7-9.3); NEUTROPHILS # (AUTO) 11.3 K/uL (1.8-7.7); NEUTROPHILS % (AUTO) 73.6 % (42.2-75.2); PLATELET COUNT (AUTO) 269 K/uL (140-450); RED BLOOD CELL COUNT(AUTO) 3.69 MIL/uL (4.20-5.40); RED CELL DISTRIBUTION WIDTH 16.2 % (11.6-13.7); WHITE BLOOD COUNT (AUTO) 15.4 K/uL (4.8-10.8)
[2022-08-04] MEDS: INSULIN LISPRO SLIDING SCALE 100 UNITS/ML VIAL SUBQ PRN ×3 (12:09→21:35)
[2022-08-04 12:11] LABS: ALBUMIN 3.1 g/dL (3.4-5.0); ANION GAP 15.4 (8-16); CARBON DIOXIDE 18.5 mmol/L (21-32); CREATININE 1.3 mg/dL (0.6-1.3); MAGNESIUM 1.5 mg/dL (1.8-2.4); POTASSIUM 3.9 mmol/L (3.5-5.1); TOTAL BILIRUBIN 0.3 mg/dL (0.0-1.0)
--- NOTE | 2022-08-04 13:55 | NUR ---
DC PLANNING ASSESSMENT COMPLETE PLEASE REFER TO ASSESSMENT FOR DETAILS MAHENDRA PIERRE TENTATIVE DC PLAN IS FOR PT TO RETURN HOME WITH FAMILY PROVIDING TRANSPORTATION, WHEN MEDICALLY STABLE. Addendum: 08/05/22 at 0835 by Jorge CRUZ Amended: Links added.
[2022-08-04] MEDS: CEFEPIME 2,000 MG in DEXTROSE 5% 100 ML IV SCH (17:11)
--- NOTE | 2022-08-04 19:40 | NUR ---
TRANSFER OF CARE FROM DAY SHIFT, REPORT RECEIVED FROM WAYNE IBARRA. PATIENT RECEIVED AWAKE, ALERT AND LYING IN BED. PATIENT DOES NOT APPEAR TO BE DISTRESS; AND IS ABLE TO MAKE ALL NEEDS KNOWN. PATIENT HAS RIGHT IJ AND IS CURRENTLY RECIEVING NORMAL SALINE @ 100ML/HR. VITALS AT START OF SHIFT: HR = 110, O2 SAT = 95%, R = 13, BP = 129/87, TEMP = 98.2F. PATIENT HAS SOTO IN PLACE. WILL CONTINUE TO MONITOR PATIENT FOR ANY CHANGES IN CONDITION
--- NOTE | 2022-08-04 20:37 | NUR ---
CALL PLACED TO PATIENT'S [phone] FROM [facility] PHONE WHICH WAS THEN GIVEN TO PATIENT FOR COMMUNICATION
[2022-08-05] VITALS (12 sets, daily range): BP systolic 92–138; BP diastolic 60–96
--- NOTE | 2022-08-05 07:00 | NUR ---
RECEIVED PT ON 4L NASAL CANNULA. SATURATION 96%. WILL CONTINUE TO MONITOR.
--- NOTE | 2022-08-05 07:18 | NUR ---
TRANSFER OF CARE TO DAY SHIFT, REPORT ENDORSED TO DAVE Palomo RN
--- NOTE | 2022-08-05 07:19 | NUR ---
RECEIVED BEDSIDE REPORT FROM GODWIN FINANCE ANALYST RN, FOR CONTINUITY OF CARE. ALERT AND ORIENTED, ABLE TO MAKE NEEDS KNOWN. 4L NC, NO S/SX OF ACUTE RESPIRATORY DISTRESS. SR ON MONITOR. TLC TO RIJ INFUSING NS AT 100 ML/HR. LEVOPHED REMAINS OFF. BP WNL. F/C IN PLACE PATENT. NO COMPLAINTS OF PAIN AT THIS TIME. STANDARD PRECAUTION. BED LOCKED AND IN LOWEST POSITION.
[2022-08-05] MEDS: BLOOD GLUCOSE MONITORING 1 DEV DEV FS SCH ×4 (07:52→21:31)
[2022-08-05 08:34] LABS: BASOPHILS # (AUTO) 0.1 K/uL (0.00-0.22); BASOPHILS % (AUTO) 0.4 % (0.0-2.0); EOSINOPHILS # (AUTO) 0.2 K/uL (0-0.4); EOSINOPHILS % (AUTO) 1.1 % (0.0-4.0); HEMATOCRIT 30.7 % (36-48); HEMOGLOBIN 10.1 g/dL (12.0-16.0); LYMPHOCYTES # (AUTO) 2.2 K/uL (2.5-16.5); LYMPHOCYTES % (AUTO) 16.2 % (20.5-51.1); MEAN CORPUSCULAR HEMOGLOBIN 27 pg (27-31); MEAN CORPUSCULAR HGB CONC 33 g/dL (33-37); MEAN CORPUSCULAR VOLUME 82.1 fL (80-94); MONOCYTES # (AUTO) 1.3 K/uL (0.8-1.0); MONOCYTES % (AUTO) 9.2 % (1.7-9.3); NEUTROPHILS # (AUTO) 10.2 K/uL (1.8-7.7); NEUTROPHILS % (AUTO) 73.1 % (42.2-75.2); PLATELET COUNT (AUTO) 271 K/uL (140-450); RED BLOOD CELL COUNT(AUTO) 3.74 MIL/uL (4.20-5.40); RED CELL DISTRIBUTION WIDTH 15.9 % (11.6-13.7); WHITE BLOOD COUNT (AUTO) 13.9 K/uL (4.8-10.8)
[2022-08-05 08:55] LABS: ALBUMIN 3.1 g/dL (3.4-5.0); ANION GAP 15.9 (8-16); CARBON DIOXIDE 20.1 mmol/L (21-32); CREATININE 1.1 mg/dL (0.6-1.3); TOTAL BILIRUBIN 0.5 mg/dL (0.0-1.0)
[2022-08-05] MEDS: NACL 0.9% 1,000 ML IV SCH ×2 (10:28→19:45)
[2022-08-05] MEDS: INSULIN LISPRO SLIDING SCALE 100 UNITS/ML VIAL SUBQ PRN ×3 (11:23→21:35)
[2022-08-05] MEDS ORDERED: NITR100C7 PO (16:15)
--- NOTE | 2022-08-05 16:22 | NUR ---
CONTACTED DR. ZAIDI WHO SAID OK TO LM SOTO.
[2022-08-05] MEDS: CEFEPIME 2,000 MG in DEXTROSE 5% 100 ML IV SCH (16:38)
--- NOTE | 2022-08-05 16:43 | NUR ---
LM SOTO PER MD ORDERS. PT TOLERATED WELL.
--- NOTE | 2022-08-05 17:00 | NUR ---
PT ABLE TO VOID FREELY TO BEDSIDE COMMODE. MEDIUM SOFT BROWN BM. PT ABLE TO CLEAN SELF AND TRANSFER TO BED WITH ASSIST.
--- NOTE | 2022-08-05 17:07 | NUR ---
SEEN AND EXAMINED BY DR. ANTONETTE KEENE. NOTIFIED OF LOW O2 SATURATION IN 80'S. ORDERS RECEIVED FOR STAT CXR AND ABG ON ROOM AIR. STATED PATIENT CANNOT DC HOME TONIGHT
--- NOTE | 2022-08-05 17:44 | NUR ---
CALLED DR. ANTONETTE KEENE AT [facility] [phone] TO REVIEW ABG RESULTS PER BEAL/EXCHANGE STATED THAT DR. KINNEY WAS CRITICAL CARE EDUCATOR AND WILL PAGE
--- NOTE | 2022-08-05 17:59 | NUR ---
CALL BACK FROM DR. ANGELITA KINNEY REVIEWED ABG RESULTS; AWARE OF CRITICAL VALUE HCO2 16.6
--- NOTE | 2022-08-05 19:00 | NUR ---
ENDORSED BEDSIDE REPORT TO GODWIN CHECKER DUMP GROUNDS RN, FOR CONTINUITY OF CARE
--- NOTE | 2022-08-05 19:05 | NUR ---
TRANSFER OF CARE FROM DAY SHIFT, REPORT RECEIVED FROM FALLON Palomo RN. PATIENT RECEIVED AWAKE, ALERT AND LYING IN BED. PATIENT DOES NOT APPEAR TO BE DISTRESS; AND IS ABLE TO MAKE ALL NEEDS KNOWN. PATIENT HAS RIGHT IJ. VITALS AT START OF SHIFT: HR = 110, O2 SAT = 94%, R = 32, BP = 116/78, TEMP = 98.2F. PATIENT HAS SOTO IN PLACE. WILL CONTINUE TO MONITOR PATIENT FOR ANY CHANGES IN CONDITION
[2022-08-06] VITALS (7 sets, daily range): BP systolic 101–142; BP diastolic 53–82
--- NOTE | 2022-08-06 05:55 | NUR ---
PATIENT TRANSFERRED TO [facility], ROOM 105B. REPORT CALLED TO HA AND ALSO INFORMED HA THAT SPOUSE NEEDS TO BE CONTACTED AFTER 7AM OF NEW LOCATION.
--- NOTE | 2022-08-06 06:25 | NUR ---
66 YR OLD FEMALE TRANSFER TO RM 105B FROM ICU IS ALERT ORIENT TO ROOM AND SURROUNDINGS 125/67 TEMP 97.HR 97 RR 18 02 SAT 93% IS ON 4LN/C .AMBULATE TO BATHROOM URINATE RETURN TO BED MADE COMFORTABLE
--- NOTE | 2022-08-06 06:49 | NUR ---
PT called to make him aware that his is in [address] NO ANSWER NO MESSAGE RECORDING IS ON
--- NOTE | 2022-08-06 07:15 | NUR ---
RECEIVED PT FROM TECHNICAL SOURCING RECRUITER NURSE FOR CONTINUITY OF CARE. PT IN BED AWAKE AND ALERTX4. RESPIRATIONS EVEN UNLABORD ON 4L N/C. RIJ DOUBLE LUMEN, SALINE LOCK. PT AMBULATED TO RESTROOM AND GOT BACK IN BED. CALL LIGHT WITHIN REACH. ALL SAFETY PRECAUTIONS IN PLACE.
[2022-08-06] MEDS: BLOOD GLUCOSE MONITORING 1 DEV DEV FS SCH ×4 (07:50→20:14)
[2022-08-06] MEDS: NACL 0.9% 1,000 ML IV SCH ×2 (08:19→15:45)
--- NOTE | 2022-08-06 08:19 | NUR ---
CARE PLAN, ASSESSMENT OF MS. BIGGS Addendum: 08/06/22 at 0824 by Agency Arlin BLACK RN Amended: Links added.
[2022-08-06] MEDS ORDERED: FUROSEMIDE 100 MG/10 ML VIAL IV SCH (11:15)
[2022-08-06] MEDS: INSULIN LISPRO SLIDING SCALE 100 UNITS/ML VIAL SUBQ PRN ×3 (11:16→20:15)
--- NOTE | 2022-08-06 15:05 | NUR ---
08/06/22 RD INITIAL ASSESSMENT COMPLETED PLEASE REFER TO NUTRITION ASSESSMENT UNDER CARE ACTIVITY FOR ESTIMATED NUTRITIONAL NEEDS. 1. CONTINUE CCHO 60 GRAM DIET TOLERATED 2. MONITOR GI, PO INTAKE, AND LAB VALUES. 3. RD TO FOLLOW-UP 3-5 DAYS, MODERATE RISK REVIEWED BY RUBIA JONES RD
[2022-08-06] MEDS: CEFEPIME 2,000 MG in DEXTROSE 5% 100 ML IV SCH (17:41)
--- NOTE | 2022-08-06 19:10 | NUR ---
ENDORSED PT TO ENGRAVER MACHINE NURSE FOR CONTINUITY OF CARE. PT IN STABLE CONDITION.
--- NOTE | 2022-08-06 19:10 | NUR ---
RECEIVED PT IN BED AWAKE,ALERT AND ORIENTED X 4. DENIES PAIN. DENIES SHORTNESS OF BREATH. SKIN WARM ADN DRY TO TOUCH. SAFETY PRECAUTIONS IN PLACE, CALL LIGHT IN REACH.
[2022-08-07] VITALS: BP 135/80
[2022-08-07 04:00] VITALS: BP 124/75
--- NOTE | 2022-08-07 06:28 | NUR ---
PATIENT IS ASLEEP. NO ACUTE RESPIRATORY DISTRESS NOTED. ALL NEEDS ATTENDED TO. SAFETY PRECAUTIONS IN PLACE, CALL LIGHT REMAINS WITHIN REACH.
[2022-08-07] MEDS: INSULIN LISPRO SLIDING SCALE 100 UNITS/ML VIAL SUBQ PRN ×2 (06:31→11:58)
[2022-08-07] MEDS: BLOOD GLUCOSE MONITORING 1 DEV DEV FS SCH ×3 (06:31→17:15)
--- NOTE | 2022-08-07 07:30 | NUR ---
RECEIVED PATIENT FROM CONCRETE TECHNICIAN NURSE.PATIENT IN BED, VERBALLY ACTIVE.ALERT AND ORIENTED.ON NC 3L.POC DISCUSSED.ALL SAFETY MEASURES IN PLACE.WILL CONTINUE TO MONITOR.
[2022-08-07 08:00] VITALS: BP 131/72
[2022-08-07 11:25] LABS: BASOPHILS # (AUTO) 0.2 K/uL (0.00-0.22); EOSINOPHILS # (AUTO) 0.5 K/uL (0-0.4); EOSINOPHILS % (AUTO) 3.1 % (0.0-4.0); HEMATOCRIT 30.2 % (36-48); HEMOGLOBIN 10.2 g/dL (12.0-16.0); LYMPHOCYTES # (AUTO) 2.7 K/uL (2.5-16.5); LYMPHOCYTES % (AUTO) 17.6 % (20.5-51.1); MEAN CORPUSCULAR HEMOGLOBIN 27 pg (27-31); MEAN CORPUSCULAR HGB CONC 34 g/dL (33-37); MEAN CORPUSCULAR VOLUME 79.7 fL (80-94); MONOCYTES # (AUTO) 1.6 K/uL (0.8-1.0); MONOCYTES % (AUTO) 10.1 % (1.7-9.3); NEUTROPHILS # (AUTO) 10.5 K/uL (1.8-7.7); NEUTROPHILS % (AUTO) 68.2 % (42.2-75.2); PLATELET COUNT (AUTO) 378 K/uL (140-450); RED CELL DISTRIBUTION WIDTH 15.7 % (11.6-13.7); WHITE BLOOD COUNT (AUTO) 15.4 K/uL (4.8-10.8)
--- NOTE | 2022-08-07 11:47 | NUR ---
BGS 243MG/L
[2022-08-07 12:00] VITALS: BP 153/76
--- NOTE | 2022-08-07 12:00 | NUR ---
TRIED WEANING THE PATIENT FROM NASAL CANNULA.TRIED WALKING TO THE CORRIDOR.SATURATION 95%.
[2022-08-07 12:13] LABS: ANION GAP 14.6 (8-16); CARBON DIOXIDE 25.6 mmol/L (21-32); CREATININE 1.1 mg/dL (0.6-1.3); POTASSIUM 3.2 mmol/L (3.5-5.1)
--- NOTE | 2022-08-07 13:01 | NUR ---
PATIENT SATURATION AT 97%, PATIENT SITTING AT BEDSIDE.DR KEENE PULMONOGIST AT BEDSIDE.ADVISED TO DISCHARGE HOME WITHOUT O2.
--- NOTE | 2022-08-07 13:19 | NUR ---
DC PLANNING: PATIENT HAS AN ORDER FOR HOME O2 FAXED THE ORDER TO [facility] AND JOSE ARMANDO DC CUSTOMER CONTACT REPRESENTATIVE TO FOLLOW UP. CM TO FOLLOW Addendum: 08/07/22 at 1615 by Idania Cervantes RN DC PLANNING: CM MET THE PATIENT AT BED SIDE ON ROOM AIRE NO RESP DISTRESS NOTED. PER OK TO DC HER HOME WITHOUT OXYGEN. JEREL SPOKE WITH BRETT AT [facility] STATED SHE RECEIVED THE AUTH FROM [employer] [facility] WILL DELIVERY AT HOME FOR PRN USE. NOTIFIED PATIENT TO USE IT NEEDED. PATIENT VERBALIZED UNDERSTANDING. NOTIFIED [facility]. JEREL TO FOLLOW
[2022-08-07 13:22] VITALS: BP 153/76
--- NOTE | 2022-08-07 15:00 | NUR ---
AT UNIT, CONFIRMING DISCHARGE ORDER FOR THE PATIENT .PATIENT SATURATION AT 97% WT ROOM AIR. GOT THE ORDER FOR REMOVAL OF IJV CATHETER.REMOVED WITH THE ASSISTANCE OF CHARGE NURSE.
--- NOTE | 2022-08-07 15:28 | NUR ---
Asked to wean PT off O2 during bed huddle. Titrated FiO2 down to 2 L. Patient saturation was 96%. RN took off NC at noon and Pt was sitting on bedside with saturation of 97%. Called to bedside because PT began to desat. Pt. sitting in bed on 3 L with a sturation of 93%. Asked to assess PT oxygenation and fitness for home O2. Took PT for a 5 minute walk test. Walked without oxygen and saturation never decreased below 87%.
[2022-08-07 16:00] VITALS: BP 136/78
[2022-08-07] MEDS: CEFEPIME 2,000 MG in DEXTROSE 5% 100 ML IV SCH (17:30)
--- NOTE | 2022-08-07 18:30 | NUR ---
PATIENT DISCHARGED TO HOME.DISCHARGE PACKETS GIVEN, ALL DISCHARGE INSTRUCTIONS GIVE. ID BAND REMOVED, TELEMONITOR REMOVED.IJV REMOVED.
[2022-08-07] MEDS ORDERED: carvediloL 3.125 MG TAB PO SCH (21:00)
[2022-08-08] MEDS ORDERED: lisinopriL 5 MG TAB PO SCH (09:00)
[2022-08-08] MEDS ORDERED: ECOTRIN 81 MG TABEC PO SCH (09:00)
[2022-08-08] MEDS ORDERED: ATORVASTATIN 80 MG TAB PO SCH (09:00)
== END 2022-08-07 18:19 | disposition home or self-care (01) | DRG 871 ==
LOC: MED 09:46 → MTU 12:48 → MIC 19:48 → MTU 08-05 17:23 → MIC 08-06 06:08 → MTU 08-06 06:08
PROVIDERS: ADMIT Hospitalist; ATTEND Hospitalist
PROC: B543ZZA Ultrasonography of Right Jugular Veins, Guidance (ICD-10-PCS; 2022-08-02)
PROC: 0T9680Z Drainage of Right Ureter with Drainage Device, Via Natural or Artificial Opening Endoscopic (ICD-10-PCS; 2022-08-02)
PROC: 05HM33Z Insertion of Infusion Device into Right Internal Jugular Vein, Percutaneous Approach (ICD-10-PCS; principal; 2022-08-02 20:00)
DX: A41.9 Sepsis, unspecified organism (principal); I21.A1 Myocardial infarction type 2; R65.21 Severe sepsis with septic shock; N17.9 Acute kidney failure, unspecified; N13.6 Pyonephrosis; I42.9 Cardiomyopathy, unspecified; E11.9 Type 2 diabetes mellitus without complications; I10 Essential (primary) hypertension; E86.0 Dehydration; E86.1 Hypovolemia; R09.02 Hypoxemia; R09.89 Other specified symptoms and signs involving the circulatory and respiratory systems; Z20.822 Contact with and (suspected) exposure to COVID-19
CPT/HCPCS: 36415; 36600; 71045; 80048; 80053; 81001; 82550; 82803; 82948; 83605; 83735; 83880; 84100; 84484; 85025; 85730; 87040; 87081; 87086; 87635-QW; 93005; 94617; 96361; 96365; 96375; 99285; C1758; C1769; J0692; J0696; J1644; J1940; J2060; J2270; J2405; J2704; J3370; J3490; J7030; J7060; P9046; Q0092